=== PATIENT | male | born 1990 | race Caucasian/White ===

== ENCOUNTER 2023-10-18 18:35 | Emergency (ER) | payer OTHER ==
[~2023-10-18] VITALS: Ht 182.9 cm; Wt 129.0 kg
[2023-10-18] VITALS (10 sets, daily range): BP systolic 110–131; BP diastolic 76–84
[2023-10-18] MEDS ORDERED: NAPROXEN 250 MG/TAB PO ONE (18:50)
[2023-10-18] MEDS ORDERED: metFORMIN HYDROCHLORIDE 500 MG/TAB PO ONE (18:50)
[2023-10-18 19:29] LABS: BASO% 0.3 % (0-3); EOS% 2.9 % (0-8); HEMATOCRIT 44.4 % (39.0-50.0); HEMOGLOBIN 14.9 g/dl (14.0-18.0); IMMATURE GRANULOCYTES 0.3 % (0.0-5.0); LYMPH% 31.4 % (15-41); MEAN CELL VOLUME 83.5 fL CALC (80.0-100.0); MEAN CORPUSCULAR HGB CONC 33.6 g/dL CAL (32.0-36.0); MONO% 6.8 % (2-13); NEUT# 6.78 thou/uL (1.82-7.42); NEUT% 58.3 % (42-76); RED BLOOD COUNT 5.32 mill/uL (4.70-6.10); RED CELL DISTRI WIDTH 13.3 % (11.5-15.5)
[2023-10-18 19:44] LABS: ALKALINE PHOSPHATASE 84 u/l (38-126); ANION GAP 13 (6-22 (CALC)); BILIRUBIN, TOTAL 0.5 mg/dL (0.2-1.3); BUN 10 mg/dL (9-20); BUN/CREATININE RATIO 11 (12-20 (CALC)); CARBON DIOXIDE 20 mmol/l (22-30); CHLORIDE 111 mmol/l (95-108); CPK 133 u/l (55-170); ESTIMATED GFR 102 ML/MIN (>=90 (CALC)); POTASSIUM 3.8 mmol/l (3.5-5.1); SGOT/AST 45 u/l (17-59); SODIUM 141 mmol/l (137-146); TOTAL PROTEIN 7.2 g/dL (6.3-8.2)
[2023-10-18] MEDS ORDERED: KEFLEX500 MG PO (20:38)
== END 2023-10-18 20:56 | disposition home or self-care (01) | DRG 605 ==
LOC: ED 18:35
PROVIDERS: Nurse Practitioner
PROC: 0HQ1XZZ Repair Face Skin, External Approach (ICD-10-PCS; principal; 2023-10-18)
DX: S01.81XA Laceration without foreign body of other part of head, initial encounter (principal); S50.812A Abrasion of left forearm, initial encounter; Y00.XXXA Assault by blunt object, initial encounter; Y99.0 Civilian activity done for income or pay; Y92.149 Unspecified place in prison as the place of occurrence of the external cause